=== PATIENT | female | born 1945 | race Caucasian/White ===

== ENCOUNTER 2019-04-18 20:53 | Emergency (ER) | payer OTHER ==
[~2019-04-18] VITALS: Ht 149.9 cm; Wt 55.3 kg
[2019-04-18 21:13] VITALS: Ht 149.9 cm; Wt 55.3 kg
[2019-04-18 22:22] VITALS: BP 136/79
== END 2019-04-18 22:22 | disposition home or self-care (01) ==
LOC: ED 20:53
DX: M54.42 Lumbago with sciatica, left side (principal); F41.9 Anxiety disorder, unspecified; E11.9 Type 2 diabetes mellitus without complications; Z98.890 Other specified postprocedural states
CPT/HCPCS: J7512